=== PATIENT | female | born 1985 | race African-American/Black ===

== ENCOUNTER 2016-06-24 19:26 | Emergency (ER) | payer SELFPAY ==
[~2016-06-24] VITALS: Ht 180.3 cm; Wt 93.8 kg
[2016-06-24 20:09] LABS: HEMATOCRIT 33.5 % (36.0-46.0); MCHC 36.4 G/DL (30.0-36.0); MCV 76.8 FL (83-99); MEAN PLAT.VOLUME 10.5 uM^3 (9.5-12.4); PLATELET COUNT 277 K/uL (156-360); RBC DIS.WIDTH-CV 12.1 % (11.8-14.6); RED BLOOD COUNT 4.36 M/uL (3.80-5.20); WHITE BLOOD COUNT 8.2 K/uL (4.1-10.2)
[2016-06-24 20:16] LABS: CHLORIDE 106 mEq/L (99-109); POTASSIUM 3.5 mEq/L (3.7-5.4); SODIUM 140 mEq/L (136-147)
[2016-06-24 20:18] LABS: GLUCOSE 89 mg/dL (70-99)
[2016-06-24 20:19] LABS: ANION GAP 9 MEQ/L (2-14)
[2016-06-24 20:23] LABS: UREA NITROGEN (BUN) 11 mg/dL (9-23)
[2016-06-24 20:30] LABS: TROP-I INTERPRETATION NEGATIVE; TROPONIN-I < 0.01 ng/mL (0.0-0.30)
[2016-06-24 20:33] LABS: GFR ESTIMATE (CALCULATED) > 59 mL/min/
[2016-06-24 20:50] LABS: D-DIMER ELISA 0.21 mg/L FEU (< 0.57)
[2016-06-24 21:53] VITALS: BP 130/78
[2016-06-24] MEDS ORDERED: ANTIBIOTICS PO (22:07)
== END 2016-06-24 22:05 | disposition home or self-care (01) ==
LOC: EME 19:26
PROVIDERS: Emergency Medicine
DX: R07.9 Chest pain, unspecified (principal)
CPT/HCPCS: 71020; 80048; 84484; 85027; 85379; 93005; 99281; 99284